=== PATIENT | male | born 1950 | race African-American/Black ===

== ENCOUNTER 2020-07-13 22:17 | Inpatient (IN) | payer OTHER, MEDICAID, SELFPAY ==
[~2020-07-13] VITALS: Ht 180.3 cm; Wt 68.0 kg
[2020-07-13 22:23] VITALS: BP 173/104
[2020-07-13] MEDS ORDERED: ASPIRIN 81 MG TAB.CHEW ONE (22:30)
[2020-07-13] MEDS ORDERED: ASPIRIN 325 MG TAB PO ONE (22:30)
[2020-07-13] MEDS ORDERED: MORPHINE SULFATE 4 MG/ML SYR ONE (22:38)
[2020-07-13 22:39] LABS: BASOPHILS # (AUTO) 0.1 K/uL (0.00-0.22); BASOPHILS % (AUTO) 0.4 % (0.0-2.0); HEMATOCRIT 25.2 % (36-52); LYMPHOCYTES # (AUTO) 0.3 K/uL (2.0-11.5); MEAN CORPUSCULAR HEMOGLOBIN 29 pg (27-31); MEAN CORPUSCULAR HGB CONC 32 g/dL (33-37); MEAN CORPUSCULAR VOLUME 91.6 fL (80-94); MONOCYTES % (AUTO) 5.2 % (1.7-9.3); NEUTROPHILS # (AUTO) 17.5 K/uL (1.8-7.7); NEUTROPHILS % (AUTO) 92.8 % (42.2-75.2); PLATELET COUNT (AUTO) 232 K/uL (140-450); RED BLOOD CELL COUNT(AUTO) 2.75 MIL/uL (4.20-6.10); RED CELL DISTRIBUTION WIDTH 16.3 % (11.6-13.7)
[2020-07-13] MEDS ORDERED: NITROGLYCERIN 0.4 MG TAB SL ONE ×3 (22:40→23:20)
[2020-07-13 22:56] LABS: ALBUMIN 4.1 g/dL (3.4-5.0); ANION GAP 31.5 (8-16); POTASSIUM 4.3 mmol/L (3.5-5.1); TOTAL BILIRUBIN 0.4 mg/dL (0.0-1.0)
[2020-07-13 22:59] LABS: LYMPHOCYTES % (AUTO) 1.6 % (20.5-51.1); WHITE BLOOD COUNT (AUTO) 18.8 K/uL (4.8-10.8)
[2020-07-13 23:04] LABS: CARBON DIOXIDE 9.8 mmol/L (21-32)
[2020-07-13] MEDS ORDERED: MORPHINE SULFATE 4 MG/ML SYR IVP ONE (23:20)
[2020-07-13 23:43] LABS: APPEARANCE,URINE SL CLOUDY (CLEAR); BILIRUBIN,URINE NEGATIVE (NEGATIVE); BLOOD, URINE 2+ (NEGATIVE); COLOR,URINE YELLOW (YELLOW); LEUKOCYTE ESTERASE ,URINE 2+ (NEGATIVE); NITRITE, URINE NEGATIVE (NEGATIVE); UGLUCOSE 2+ (NEGATIVE)
[2020-07-14] VITALS (12 sets, daily range): BP systolic 113–166; BP diastolic 57–113
[2020-07-14 00:04] LABS: RBC,URINE TOO NUMEROUS TO COUN /HPF (0-5); WBC,URINE TOO MANY TO COUNT /HPF (0-5)
[2020-07-14] MEDS ORDERED: cefTRIAXone 1,000 MG VIAL ONE (00:06)
[2020-07-14] MEDS ORDERED: MORPHINE SULFATE 2 MG/ML SYR IVP PRN ×2 (01:50→06:10)
[2020-07-14] MEDS ORDERED: MORPHINE SULFATE 2 MG/ML SYR ONE (01:51)
[2020-07-14] MEDS ORDERED: PIPERACILLIN/TAZOBACTAM 2.25 GM VIAL IV ONE (05:39)
[2020-07-14] MEDS ORDERED: PIPERACILLIN/TAZOBACTAM 2.25 GM in DEXTROSE 5% 50 ML IV ONE (06:00)
[2020-07-14] MEDS ORDERED: DOCUSATE SODIUM 100 MG GELCAP PO PRN (06:10)
[2020-07-14] MEDS ORDERED: ONDANSETRON 4 MG/2 ML VIAL IVP PRN (06:10)
[2020-07-14] MEDS ORDERED: ZOLPIDEM 5 MG TAB PO PRN (06:10)
[2020-07-14] MEDS ORDERED: LORazepam 2 MG/ML VIAL IM/IVP PRN (06:10)
[2020-07-14] MEDS ORDERED: ACETAMINOPHEN 325 MG TAB PO PRN (06:10)
[2020-07-14] MEDS: BLOOD GLUCOSE MONITORING 1 DEV DEV FS SCH ×4 (06:40→21:46)
[2020-07-14] MEDS: NACL 0.9% 1,000 ML IV SCH (06:40)
[2020-07-14 06:45] LABS: BARBITURATE, URINE NEGATIVE ng/ml (NEG <=200); BENZODIAZEPINE, URINE NEGATIVE ng/mL (NEG <=200); CANNABINOID, URINE NEGATIVE ng/mL (NEG <=50); COCAINE, URINE NEGATIVE ng/mL (NEG <=300); OPIATE, URINE NEGATIVE ng/mL (NEG <=2000); PHENCYCLIDINE SCREEN,URINE NEGATIVE ng/mL (NEG <=25)
[2020-07-14 07:36] LABS: BASOPHILS % (AUTO) 0.1 % (0.0-2.0); HEMATOCRIT 23.2 % (36-52); HEMOGLOBIN 7.6 g/dL (12.0-18.0); LYMPHOCYTES # (AUTO) 0.9 K/uL (2.0-11.5); LYMPHOCYTES % (AUTO) 3.6 % (20.5-51.1); MEAN CORPUSCULAR HEMOGLOBIN 30 pg (27-31); MEAN CORPUSCULAR HGB CONC 33 g/dL (33-37); MONOCYTES # (AUTO) 1.6 K/uL (0.8-1.0); MONOCYTES % (AUTO) 6.6 % (1.7-9.3); NEUTROPHILS # (AUTO) 21.5 K/uL (1.8-7.7); NEUTROPHILS % (AUTO) 89.7 % (42.2-75.2); PLATELET COUNT (AUTO) 184 K/uL (140-450); RED BLOOD CELL COUNT(AUTO) 2.54 MIL/uL (4.20-6.10); RED CELL DISTRIBUTION WIDTH 16.7 % (11.6-13.7)
[2020-07-14 08:04] LABS: ANION GAP 31.7 (8-16); POTASSIUM 4.4 mmol/L (3.5-5.1)
[2020-07-14 08:06] LABS: CARBON DIOXIDE 8.7 mmol/L (21-32); CREATININE 19.4 mg/dL (0.6-1.3)
[2020-07-14 10:57] LABS: CHOL/HDL RATIO 2.2 (1-4.5); FREE T4 (FREE THYROXINE) 0.69 ng/dL (0.76-1.46); MAGNESIUM 1.8 mg/dL (1.8-2.4); THYROID STIMULATING HORMONE 1.06 uIU/mL (0.34-3.74)
[2020-07-14 11:03] LABS: PHOSPHORUS 11.1 mg/dL (2.5-4.9)
[2020-07-14 11:07] LABS: PHOSPHORUS 11.1 mg/dL (2.5-4.9)
[2020-07-14] MEDS ORDERED: COLCHICINE 0.6 MG TAB PO SCH (12:17)
[2020-07-14] MEDS ORDERED: ASPIRIN 325 MG TABEC PO SCH (13:03)
[2020-07-14] MEDS: PIPERACILLIN/TAZOBACTAM 2.25 GM in DEXTROSE 5% 50 ML IV SCH ×2 (13:07→21:46)
[2020-07-14] MEDS: ASPIRIN 325 MG TABEC PO SCH (17:33)
[2020-07-14] MEDS: INSULIN LISPRO SLIDING SCALE 100 UNITS/ML VIAL SUBQ PRN (17:37)
[2020-07-15] VITALS (10 sets, daily range): BP systolic 95–122; BP diastolic 62–75
[2020-07-15] MEDS: PIPERACILLIN/TAZOBACTAM 2.25 GM in DEXTROSE 5% 50 ML IV SCH ×3 (04:38→20:29)
[2020-07-15 06:08] LABS: HEPATITIS A ANTIBODY IGM Negative (Negative); HEPATITIS B CORE AB TOTAL Negative (Negative); HEPATITIS B SURFACE ANTIBODY Non Reactive (.); HEPATITIS B SURFACE ANTIGEN Negative (Negative)
[2020-07-15] MEDS: NACL 0.9% 1,000 ML IV SCH (06:08)
[2020-07-15 06:24] LABS: BASOPHILS # (AUTO) 0.1 K/uL (0.00-0.22); BASOPHILS % (AUTO) 0.4 % (0.0-2.0); EOSINOPHILS % (AUTO) 0.1 % (0.0-4.0); HEMATOCRIT 22.1 % (36-52); HEMOGLOBIN 7.4 g/dL (12.0-18.0); LYMPHOCYTES # (AUTO) 0.9 K/uL (2.0-11.5); LYMPHOCYTES % (AUTO) 5.3 % (20.5-51.1); MEAN CORPUSCULAR HEMOGLOBIN 30 pg (27-31); MEAN CORPUSCULAR HGB CONC 34 g/dL (33-37); MEAN CORPUSCULAR VOLUME 88.5 fL (80-94); MONOCYTES # (AUTO) 1.1 K/uL (0.8-1.0); MONOCYTES % (AUTO) 6.5 % (1.7-9.3); NEUTROPHILS # (AUTO) 14.7 K/uL (1.8-7.7); NEUTROPHILS % (AUTO) 87.7 % (42.2-75.2); PLATELET COUNT (AUTO) 172 K/uL (140-450); RED CELL DISTRIBUTION WIDTH 16.9 % (11.6-13.7); WHITE BLOOD COUNT (AUTO) 16.8 K/uL (4.8-10.8)
[2020-07-15 06:37] LABS: ANION GAP 20.9 (8-16); CARBON DIOXIDE 20.6 mmol/L (21-32); POTASSIUM 3.5 mmol/L (3.5-5.1)
[2020-07-15 06:57] LABS: CREATININE 13.2 mg/dL (0.6-1.3)
[2020-07-15] MEDS: BLOOD GLUCOSE MONITORING 1 DEV DEV FS SCH ×4 (07:02→20:29)
[2020-07-15 07:42] LABS: MAGNESIUM 1.5 mg/dL (1.8-2.4)
[2020-07-15 07:44] LABS: PHOSPHORUS 9.9 mg/dL (2.5-4.9)
[2020-07-15] MEDS: PANTOPRAZOLE 40 MG TABEC PO SCH (08:06)
[2020-07-15] MEDS: ASPIRIN 325 MG TABEC PO SCH ×3 (08:07→16:34)
[2020-07-15] MEDS: COLCHICINE 0.6 MG TAB PO SCH (08:08)
[2020-07-15] MEDS ORDERED: BROM3SOL RIGHT EYE (09:28)
[2020-07-15] MEDS ORDERED: BLEOS OP (09:30)
[2020-07-15] MEDS ORDERED: [UNRECOGNIZED DRUG - CODE] RIGHT EYE (09:31)
[2020-07-15 09:50] LABS: FERRITIN 934 ng/mL (30-400)
[2020-07-15] MEDS ORDERED: GATIFLOXACIN 0.5% OP SCH (10:31)
[2020-07-15] MEDS ORDERED: PREDNISOLONE 1% OP SCH (10:36)
[2020-07-15] MEDS ORDERED: PROLENSA OP SCH (10:42)
[2020-07-15] MEDS: EYE OP SCH ×2 (13:37→16:36)
[2020-07-15] MEDS: GATIFLOXACIN 0.5% OP SCH ×2 (13:37→16:36)
[2020-07-15] MEDS: PREDNISOLONE 1% OP SCH ×2 (13:38→16:36)
[2020-07-15] MEDS: HYDROcodone/APAP 5/325 MG 1 TAB TAB PO PRN (18:02)
[2020-07-15] MEDS: INSULIN LISPRO SLIDING SCALE 100 UNITS/ML VIAL SUBQ PRN (20:39)
[2020-07-15] MEDS ORDERED: MAGNESIUM OXIDE 400 MG TAB PO ONE (21:40)
[2020-07-15] MEDS ORDERED: MAGNESIUM OXIDE 400 MG TAB ONE (22:53)
[2020-07-16] VITALS: BP 101/65
[2020-07-16] MEDS: HYDROcodone/APAP 5/325 MG 1 TAB TAB PO PRN (00:45)
[2020-07-16 04:00] VITALS: BP 123/74
[2020-07-16] MEDS: PIPERACILLIN/TAZOBACTAM 2.25 GM in DEXTROSE 5% 50 ML IV SCH ×3 (04:16→20:10)
[2020-07-16] MEDS: NACL 0.9% 1,000 ML IV SCH (06:08)
[2020-07-16 06:24] LABS: BASOPHILS # (AUTO) 0.1 K/uL (0.00-0.22); BASOPHILS % (AUTO) 0.3 % (0.0-2.0); EOSINOPHILS # (AUTO) 0.1 K/uL (0-0.4); EOSINOPHILS % (AUTO) 0.4 % (0.0-4.0); HEMATOCRIT 23.2 % (36-52); HEMOGLOBIN 7.7 g/dL (12.0-18.0); MEAN CORPUSCULAR HEMOGLOBIN 30 pg (27-31); MEAN CORPUSCULAR HGB CONC 33 g/dL (33-37); MEAN CORPUSCULAR VOLUME 89.6 fL (80-94); MONOCYTES # (AUTO) 1.6 K/uL (0.8-1.0); MONOCYTES % (AUTO) 8.4 % (1.7-9.3); NEUTROPHILS # (AUTO) 15.9 K/uL (1.8-7.7); PLATELET COUNT (AUTO) 179 K/uL (140-450); RED BLOOD CELL COUNT(AUTO) 2.59 MIL/uL (4.20-6.10); RED CELL DISTRIBUTION WIDTH 16.7 % (11.6-13.7); WHITE BLOOD COUNT (AUTO) 18.5 K/uL (4.8-10.8)
[2020-07-16] MEDS: BLOOD GLUCOSE MONITORING 1 DEV DEV FS SCH ×4 (06:49→20:08)
[2020-07-16 07:36] LABS: LYMPHOCYTES % (AUTO) 5.3 % (20.5-51.1); NEUTROPHILS % (AUTO) 85.6 % (42.2-75.2)
[2020-07-16 08:00] VITALS: BP 99/64
[2020-07-16] MEDS: COLCHICINE 0.6 MG TAB PO SCH (08:42)
[2020-07-16] MEDS: PANTOPRAZOLE 40 MG TABEC PO SCH (08:42)
[2020-07-16] MEDS: ASPIRIN 325 MG TABEC PO SCH ×3 (08:43→17:00)
[2020-07-16] MEDS: EYE OP SCH ×3 (08:49→16:32)
[2020-07-16] MEDS: GATIFLOXACIN 0.5% OP SCH ×3 (08:49→16:32)
[2020-07-16] MEDS ORDERED: PROLENSA OP SCH (09:00)
[2020-07-16] MEDS: PREDNISOLONE 1% OP SCH ×3 (09:17→17:16)
[2020-07-16 12:00] VITALS: BP 105/76
[2020-07-16] MEDS ORDERED: LOPERAMIDE 2 MG CAP PO PRN (15:45)
[2020-07-16 16:00] VITALS: BP 96/63
[2020-07-16] MEDS: LACTOBACILLUS RHAMNOSUS GG 1 EACH CAP PO SCH (16:26)
[2020-07-16 20:00] VITALS: BP 100/57
[2020-07-17] VITALS: BP 101/65
[2020-07-17 04:00] VITALS: BP 108/68
[2020-07-17] MEDS: PIPERACILLIN/TAZOBACTAM 2.25 GM in DEXTROSE 5% 50 ML IV SCH ×2 (04:02→13:00)
[2020-07-17] MEDS: NACL 0.9% 1,000 ML IV SCH (06:08)
[2020-07-17] MEDS: BLOOD GLUCOSE MONITORING 1 DEV DEV FS SCH ×3 (06:52→16:30)
[2020-07-17 07:05] LABS: BASOPHILS % (AUTO) 0.2 % (0.0-2.0); EOSINOPHILS # (AUTO) 0.1 K/uL (0-0.4); EOSINOPHILS % (AUTO) 0.5 % (0.0-4.0); HEMATOCRIT 20.3 % (36-52); LYMPHOCYTES # (AUTO) 1.1 K/uL (2.0-11.5); LYMPHOCYTES % (AUTO) 6.9 % (20.5-51.1); MEAN CORPUSCULAR HEMOGLOBIN 30 pg (27-31); MEAN CORPUSCULAR HGB CONC 33 g/dL (33-37); MEAN CORPUSCULAR VOLUME 90.2 fL (80-94); MONOCYTES # (AUTO) 1.4 K/uL (0.8-1.0); MONOCYTES % (AUTO) 9.1 % (1.7-9.3); NEUTROPHILS # (AUTO) 13.2 K/uL (1.8-7.7); NEUTROPHILS % (AUTO) 83.3 % (42.2-75.2); PLATELET COUNT (AUTO) 178 K/uL (140-450); RED BLOOD CELL COUNT(AUTO) 2.25 MIL/uL (4.20-6.10); RED CELL DISTRIBUTION WIDTH 16.8 % (11.6-13.7); WHITE BLOOD COUNT (AUTO) 15.8 K/uL (4.8-10.8)
[2020-07-17 07:08] LABS: MAGNESIUM 1.9 mg/dL (1.8-2.4); PHOSPHORUS 7.6 mg/dL (2.5-4.9)
[2020-07-17 07:15] LABS: ANION GAP 21.5 (8-16); CARBON DIOXIDE 20.1 mmol/L (21-32); POTASSIUM 3.6 mmol/L (3.5-5.1)
[2020-07-17 07:32] LABS: CREATININE 10.2 mg/dL (0.6-1.3)
[2020-07-17 08:00] VITALS: BP 99/64
[2020-07-17 08:10] LABS: HEMOGLOBIN 6.8 g/dL (12.0-18.0)
[2020-07-17] MEDS: ASPIRIN 325 MG TABEC PO SCH ×3 (09:00→17:15)
[2020-07-17] MEDS: COLCHICINE 0.6 MG TAB PO SCH (09:37)
[2020-07-17] MEDS: LACTOBACILLUS RHAMNOSUS GG 1 EACH CAP PO SCH (09:37)
[2020-07-17] MEDS: PANTOPRAZOLE 40 MG TABEC PO SCH (09:37)
[2020-07-17 12:00] VITALS: BP 98/58
[2020-07-17] MEDS: ACETAMINOPHEN 325 MG TAB PO SCH ×2 (13:16→17:15)
[2020-07-17] MEDS: FUROSEMIDE 20 MG TAB PO SCH ×2 (13:16→17:15)
[2020-07-17 16:00] VITALS: BP 101/67
[2020-07-18 06:07] LABS: PROTEIN, TOTAL, URINE 46.3 mg/dL (Not Estab.)
== END 2020-07-17 20:00 | disposition left against medical advice (07) | DRG 871 ==
LOC: MED 22:17 → MMU 07-14 01:19 → MIC 07-14 02:07 → MTU 07-15 19:15
PROVIDERS: ADMIT Family Medicine; ATTEND Family Medicine
PROC: 30233N1 Transfusion of Nonautologous Red Blood Cells into Peripheral Vein, Percutaneous Approach (ICD-10-PCS; principal; 2020-07-17)
DX: A41.9 Sepsis, unspecified organism (principal); N17.0 Acute kidney failure with tubular necrosis; J96.01 Acute respiratory failure with hypoxia; N18.6 End stage renal disease; N39.0 Urinary tract infection, site not specified; I12.0 Hypertensive chronic kidney disease with stage 5 chronic kidney disease or end stage renal disease; I31.9 Disease of pericardium, unspecified; M94.0 Chondrocostal junction syndrome [Tietze]; D64.9 Anemia, unspecified; E11.22 Type 2 diabetes mellitus with diabetic chronic kidney disease; E83.39 Other disorders of phosphorus metabolism; Z85.46 Personal history of malignant neoplasm of prostate; Z86.73 Personal history of transient ischemic attack (TIA), and cerebral infarction without residual deficits; Z87.442 Personal history of urinary calculi; Z88.2 Allergy status to sulfonamides; Z90.79 Acquired absence of other genital organ(s); Z91.15 Patient's noncompliance with renal dialysis; Z99.2 Dependence on renal dialysis; Z88.1 Allergy status to other antibiotic agents; E83.52 Hypercalcemia; N40.1 Benign prostatic hyperplasia with lower urinary tract symptoms; Z20.828 Contact with and (suspected) exposure to other viral communicable diseases
CPT/HCPCS: 36415; 36600; 71045; 76770; 80048; 80053; 80305; 81001; 82150; 82306; 82607; 82728; 82746; 82803; 82948; 83036; 83540; 83605; 83690; 83735; 83880; 84100; 84154; 84165; 84439; 84443; 84484; 84550; 85025; 85610; 85730; 86704; 86706; 86708; 86709; 86803; 86886; 86900; 86901; 86920; 87040; 87081; 87086; 87340; 90935; 93005; 96365; 96375; 96376; 97110; 97116; 97161-GP; 99291; J0696; J1644; J2270; J2405; J2543; J7030; J7060; P9016; Q0092; Q0163